=== PATIENT | male | born 1950 | race African-American/Black ===

== ENCOUNTER 2017-05-30 07:46 | Emergency (ER) | payer BC ==
[~2017-05-30] VITALS: Ht 170.2 cm; Wt 102.1 kg
[2017-05-30] MEDS ORDERED: TENORMIN50 MG PO (07:57)
[2017-05-30] MEDS ORDERED: URECHOLINE 10 M10 M1 PO (07:58)
[2017-05-30] MEDS ORDERED: ZOCOR20 MG PO (07:58)
[2017-05-30] MEDS ORDERED: NORCO 5-325 TA1 EACH PO ×2 (07:59→09:00)
[2017-05-30 08:19] LABS: ABSOLUTE NEUTROPHILS 6.2 thou/uL (1.4-8.2); BASOPHILS 0.4 % (0.0-2.0); EOSINOPHILS 3.2 % (0.0-3.0); HEMATOCRIT 43.4 % (42.0-52.0); HEMOGLOBIN 15.4 gm/dL (14.0-18.0); LYMPHOCYTES 14.5 % (24.0-44.0); MCH 28.3 pg (26.0-34.0); MCHC 35.6 g/dL (28.0-37.0); MCV 79.4 fL (80.0-100.0); MONOCYTES 8.6 % (1.0-8.0); PLATELET COUNT 148 thou/uL (150-400); POLYS 73.3 % (36.0-66.0); RBC 5.46 mil/uL (4.50-6.00); RDW 14.9 % (10.5-14.5); WBC 8.5 thou/uL (4.0-11.0)
[2017-05-30] MEDS ORDERED: INDOMETHACIN 2525 MG PO (09:00)
[2017-05-30] MEDS ORDERED: SENNA-DOCUSATE1 EACH PO (09:00)
[2017-05-30 09:04] LABS: CREATININE 0.8 mg/dL (0.7-1.3); POTASSIUM 3.2 mmol/L (3.5-5.1)
[2017-05-30] MEDS ORDERED: HYDROCHLOROTHIA25 M2 PO (09:05)
[2017-05-30 09:12] LABS: ANISOCYTOSIS 1+; MICROCYTES 1+
[2017-05-30 09:14] LABS: URIC ACID* 8.8 mg/dL (2.6-7.2)
[2017-05-30] MEDS ORDERED: PREDNISONE 10 M10 M1 PO (09:23)
== END 2017-05-30 09:22 | disposition home or self-care (01) ==
LOC: ER 07:46
PROVIDERS: Emergency Medicine
DX: M10.072 Idiopathic gout, left ankle and foot (principal); I10 Essential (primary) hypertension; E78.5 Hyperlipidemia, unspecified